=== PATIENT | female | born 1985 | race Caucasian/White ===

== ENCOUNTER 2018-04-04 23:12 | Inpatient (IN) | payer OTHER ==
[~2018-04-04] VITALS: Ht 152.4 cm; Wt 68.0 kg
[2018-04-05 00:07] LABS: ABSOLUTE BASOPHIL COUNT 0.1 /CUMM (0.0-0.2); ABSOLUTE EOSINOPHIL COUNT 0 /CUMM (0.0-0.7); ABSOLUTE GRANULOCYTE CT 14.5 /CUMM (1.4-6.5); ABSOLUTE LYMPH COUNT 1.8 /CUMM (1.2-3.4); ABSOLUTE MONOCYTE COUNT 1.3 /CUMM (0.10-0.60); BASOPHIL % 0.5 % (0.0-2.0); EOSINOPHIL % 0.1 % (0-5); GRANULOCYTE % 81.9 % (42.2-75.2); HEMATOCRIT 36.5 % (37-47); MEAN CORPUSCULAR HGB 31.1 PG (27.0-31.0); MEAN CORPUSCULAR HGB CONC 34.8 G/DL (33.0-37.0); MEAN CORPUSCULAR VOLUME 89.4 FL (81.0-99.0); MEAN PLATELET VOLUME 10.9 FL (7.4-10.4); PLATELET COUNT 221 /CUMM (130-400); RBC DISTRIBUTION WIDTH 12.9 % (11.5-14.5); RED BLOOD CELL CT 4.07 /CUMM (4.20-5.40); WHITE BLOOD CELL COUNT 17.7 /CUMM (4.8-10.8)
--- NOTE | 2018-04-05 03:23 | History & Physical ---
General Information and HPI MD Statement: I have seen and personally examined JAMIE MERAZ and documented this H&P. The patient is a 32 year old female at 39 weeks and 3 days gestation who presented with a chief complaint of ROM clear.. Source of Information: patient, old records Exam Limitations: no limitations History of Present Illness: Pt marty known to our practice with ROM and uterine contractions was in last night for labor eval and sent hohe at 2 cm now is 3 cm and requesting epidural. 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 EENTM: Denies: blurred vision, double vision, visual changes. Cardiovascular: Denies: chest pain. Respiratory: Denies: short of breath. GI: Denies: diarrhea, nausea, vomiting. Neurological/Psychological: Denies: anxiety, depressed. Exam & Diagnostic Data Last 24 Hrs of Vital Signs/I&O vss Intake & Output 04/05 0800 07/25 0000 04/04 1600 Intake Total Output Total Balance Patient 150 lb Weight Obstetric Exam Wgt Gained During : 22lbs Pelvimetry: seems adequate Dilation (cm): 3 Effacement (%): 90 Station: -2 Membranes: SROM Fluid: clear Fundal Height (cm): 38 Multiple Gestation? No Contractions: q3min #1 - FHR Baseline: 145 Category: 1 Estimated Weight: 3600g Presentation: vtx Patient for Induction? No Physical Exam General Appearance Alert, Oriented X3, Moderate Distress Skin No Rashes HEENT Atraumatic Neck Supple Cardiovascular Regular Rate Lungs Clear to Auscultation Abdomen Soft Labs Blood Type & Rh: A neg Antibody Screen: neg Hct/Hgb & Platelets #1: 42.3/12.4/270 Hct/Hgb & Platelets #2: 36/10.8/247 Rubella: imm VDRL #1: nr VDRL #2: nr HbsAg: neg HIV #1: nre HIV #2 nr 1 Hr P Group B Strep: negative Initial Ultrasound: 09/06/2017 8w2d Anatomy Ultrasound: 11/28/2017 normal Genetic Testing: negative cff DNA Last 24 Hrs of Labs/Durga: Laboratory Tests 04/04/18 2340: CBC w Diff NO MAN DIFF REQ, RBC 4.07 L, MCV 89.4, MCH 31.1 H, MCHC 34.8, RDW 12.9, MPV 10.9 H, Gran % 81.9 H, Lymphocytes % 10.1 L, Monocytes % 7.4, Eosinophils % 0.1, Basophils % 0.5, Absolute Granulocytes 14.5 H, Absolute Lymphocytes 1.8, Absolute Monocytes 1.3 H, Absolute Eosinophils 0, Absolute Basophils 0.1 Assessment/Plan Assessment/Plan: iup at term rom early active labor will get epidural Rh negative recieved rhogam thyroidectomy on thyroid replacement As Ranked By This Provider Problem List: 1. Core Measures Venous Thromboembolism VTE Risk Factors / No Mechanical VTE Prophylaxis d/t LowRisk-No Interven Req'd No VTE Pharm Prophylaxis d/t LowRisk-No Interven Req'd Attending MD Review Statement Attending Statement Attending MD Statement: examined this patient, discussed with family, discussed w/nursing
--- NOTE | 2018-04-05 07:27 | Labor & Delivery Summary ---
Delivery Summary Vaginal Delivery: Vaginal: vertex Episiotomy/Lacerations: Episiotomy/Lacerations: 1degree Type: midline Repair: 3-0 polysorb Anesthesia: 8cc nessicaine Placenta: Placenta: spontanteous, normal, 3 vessel Anesthesia: block Baby's Weight: 6#10oz Apgars - 1 Min: 9 Apgars - 5 Min: 9 Additional Comments: placenta hard to remove however came out in one piece post hemorrhage 1000cc responded to pit, methergine and hemabate.
[2018-04-06 09:02] LABS: ABSOLUTE BASOPHIL COUNT 0 /CUMM (0.0-0.2); ABSOLUTE EOSINOPHIL COUNT 0.1 /CUMM (0.0-0.7); ABSOLUTE MONOCYTE COUNT 1.3 /CUMM (0.10-0.60); BASOPHIL % 0.2 % (0.0-2.0); EOSINOPHIL % 0.3 % (0-5); MEAN CORPUSCULAR HGB CONC 34.4 G/DL (33.0-37.0); RBC DISTRIBUTION WIDTH 13.3 % (11.5-14.5); RED BLOOD CELL CT 3.14 /CUMM (4.20-5.40)
[2018-04-06 09:08] LABS: ABSOLUTE GRANULOCYTE CT 15.1 /CUMM (1.4-6.5); ABSOLUTE LYMPH COUNT 2.2 /CUMM (1.2-3.4); MEAN CORPUSCULAR HGB 31.4 PG (27.0-31.0); MEAN CORPUSCULAR VOLUME 91.2 FL (81.0-99.0); MEAN PLATELET VOLUME 10.8 FL (7.4-10.4); PLATELET COUNT 189 /CUMM (130-400); WHITE BLOOD CELL COUNT 18.7 /CUMM (4.8-10.8)
[2018-04-06 09:10] LABS: HEMATOCRIT 28.6 % (37-47)
--- NOTE | 2018-04-06 09:44 | PN- OBGYN ---
Surgical Brief Attending Note Brief Attending Note: PPD 1 Patient awake, sitting up, pumping breasts. Says she's tired. Denies pain. Denies dizziness, weakness, or SOB. +void. Mild lochia rubra. Tolerating POs. She and baby both struggling with latching. afebrile, VS normal, UOP adequate Breasts - soft, nonengorged Abd - soft, NT Fundus - firm, NT, at U Perineum - dry, intact Extr - benign A: stable anemia s/p PP hemorrhage, tolerating well initial difficulty with nursing P: con't routine care repeat CBC prior to discharge restart PNV/iron at home after 1st BM continue latching practice with baby, supplement per Peds if needed. plan discharge in am
[2018-04-07 08:21] LABS: ABSOLUTE BASOPHIL COUNT 0.1 /CUMM (0.0-0.2); ABSOLUTE EOSINOPHIL COUNT 0.1 /CUMM (0.0-0.7); ABSOLUTE GRANULOCYTE CT 11.2 /CUMM (1.4-6.5); ABSOLUTE LYMPH COUNT 2.7 /CUMM (1.2-3.4); ABSOLUTE MONOCYTE COUNT 0.9 /CUMM (0.10-0.60); BASOPHIL % 0.4 % (0.0-2.0); EOSINOPHIL % 0.9 % (0-5); GRANULOCYTE % 74.8 % (42.2-75.2); HEMATOCRIT 30.6 % (37-47); MEAN CORPUSCULAR HGB CONC 33.7 G/DL (33.0-37.0); MEAN PLATELET VOLUME 10.1 FL (7.4-10.4); PLATELET COUNT 208 /CUMM (130-400); RBC DISTRIBUTION WIDTH 13.3 % (11.5-14.5); RED BLOOD CELL CT 3.33 /CUMM (4.20-5.40); WHITE BLOOD CELL COUNT 14.9 /CUMM (4.8-10.8)
[2018-04-07] MEDS ORDERED: FERROUS SULFAT325 M3 PO (09:01)
--- NOTE | 2018-04-07 09:12 | PN- OBGYN ---
Surgical Brief Attending Note Brief Attending Note: PPD#2 pt is ambulating, no complaints, tolertae diet, void without difficulties. PE: VSS CV RRR Lungs CTA B/L Abdomen: soft, nontender, uterus firm, fundus below umbilicus, lochia mild Ext: DCT (-) A/P: 32yo, s/p , PPH, PPD #2 1. encourage ambulation and 2. pain management s needed 3. Repeat H/H today 10.3/30.6 4.will d/c home, f/u in office in 2 wks and 6 wks. discharge instructions given.
== END 2018-04-07 10:20 | DRG 775 ==
LOC: CBCO 23:12 → GNO 23:36
PROVIDERS: Obstetrics & Gynecology
PROC: 0HQ9XZZ Repair Perineum Skin, External Approach (ICD-10-PCS; principal; 2018-04-05)
PROC: 10E0XZZ Delivery of Products of Conception, External Approach (ICD-10-PCS; principal; 2018-04-05)
PROC: 3E0334Z Introduction of Serum, Toxoid and Vaccine into Peripheral Vein, Percutaneous Approach (ICD-10-PCS; 2018-04-05)
DX: O70.0 First degree perineal laceration during delivery (principal); Z3A.39 39 weeks gestation of pregnancy; Z37.0 Single live birth; Z88.6 Allergy status to analgesic agent; O99.284 Endocrine, nutritional and metabolic diseases complicating childbirth; E89.0 Postprocedural hypothyroidism; Z67.91 Unspecified blood type, Rh negative
CPT/HCPCS: GNOP; GNOS; 36415; 81001; 86920; 86922; 87086; 88307; G0463; J2210; J2405; J2790; J3490; J7120